=== PATIENT | male | born 1975 | race Caucasian/White ===

== ENCOUNTER 2023-07-03 08:17 | Outpatient (AMB) | payer OTHER, SELFPAY ==
--- NOTE | 2023-07-03 08:32 | MHC.PC.OV ---
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 Previous PCP 1.5 years ago in [place]. Medical history significant for morbid obesity, depression, hypertension. Patient reports that he was on sertraline in the past for depression although he stop taking it due to sexual side effects, patient would like to try bupropion, currently he self medicate with food. Patient denies SI. Patient also has therapist 4 times per month. Patient also reports that in the past he was on losartan for blood pressure. Blood pressure high in the office today, will restart blood pressure medication. Patient denies headache, shortness of breath, or chest pain. Patient unemployed and he lives with his . [facility], [facility] Medical History Migraines Surgical History No pertinent past surgical history Family History Mother COPD (chronic obstructive pulmonary disease) Father No problems noted. Social History Housing: Apartment Patient Tobacco Use Status: Never used Tobacco service: No Current occupational status: unemployed Cognitive needs: No Hearing needs: No Vision needs: No Questionnaire PHQ-9 Over the last 2 weeks, how often have you been bothered by any of the following problems? 1. Little interest or pleasure in doing things: more than half the days 2. Feeling down, depressed, or hopeless: several days 3. Trouble falling or staying asleep, or sleeping too much: not at all 4. Feeling tired or having little energy: not at all 5. Poor appetite or overeating: several days 6. Feeling bad about yourself - or that you are a failure or have let yourself or your family down: not at all 7. Trouble concentrating on things, such as reading the newspaper or watching television: not at all 8. Moving or speaking so slowly that other people could have noticed. Or the opposite - being so fidgety or restless that you have been moving around a lot more than usual: not at all 9. Thoughts that you would be better off or of hurting yourself in some way: not at all Total score: 4 Depression Screening Interpretation: Positive Depression Screening Follow-up: In treatment and New Medication prescribed Depression Screening Done: Yes 95288 - PHQ-9 Billing: Yes Source: Developed by Drs. Rasheed Puckett, Sharla Root, Thierno Shepard and colleagues, with an educational kelsy from [employer]. Thrive Questionnaire Date Thrive assessed: 07/03/23 I am a: Patient What is your living situation today?: I have a steady place to live Within the past 12 months, did the food you bought not last and you didn't have the money to get more?: Never true Within the past 12 months, did you worry whether your food would run out before you got money to buy more?: Never true Do you have trouble paying for medicines?: No Do you have trouble getting transportation to medical appointments?: No Do you have trouble paying your heating and electricity bill?: No Do you have trouble taking care of your child, family member or friend?: No Do you have trouble with day-to-day activities such as bathing, preparing meals, shopping, managing finances, etc.?: No Are you currently unemployed and looking for a job?: No Are you interested in more education?: No Currently or been in a relationship where the following occur: no concerns reported AUDIT C Alcohol Use Questionnaire (AUDIT-C) 1. How often do you have a drink containing alcohol?: Never 3. How often do you have six or more drinks on one occasion?: Never Total Score: 0 Score Reviewed/Action Taken: No SANTOS-7 AMB Questionnaire SANTOS-7 Date SANTOS - 7 assessed: 07/03/23 Feeling nervous, anxious, or on edge: 3 = Nearly every day Not being able to stop or control worryin = Not at all Worrying too much about different things: 0 = Not at all Trouble relaxin = Several days Being so restless that it is hard to sit still: 0 = Not at all Becoming easily annoyed or irritable: 0 = Not at all Feeling afraid as if something awful might happen: 1 = Several days Total SANTOS-7 score (0-4 normal; 5-9 mild; 10-14 moderate; 15-21 severe): 5 Source: Developed by Drs. Rasheed Puckett, Sharla Root, Thierno Shepard and colleagues, with an educational kelsy from [employer]. SANTOS-7 Assessment Billing SANTOS-7 Assessment Tool: SANTOS-7 Assessment 78239 Review of Systems Const Denies body aches, Denies chills, Denies fever(s) and Denies headache(s) Eyes Denies change in vision ENT Denies dizziness, Denies otalgia, Denies headache(s), Denies nasal discharge, Denies sinus pain and Denies sore throat Card Denies chest pain, Denies edema, Denies lightheadedness and Denies dyspnea Resp Denies cough, Denies dyspnea and Denies wheezing GI Denies abdominal pain, Denies constipation, Denies diarrhea, Denies nausea and Denies vomiting Denies dysuria Musc Denies myalgias Skin/Breast Denies rash Neuro Denies dizziness and Denies headache(s) Aller/Immun Denies wheezing Physical exam (Primary Care) Vital Signs: Last Vital Signs Pulse 83 07/03/23 08:33 BP 164/100 H 07/03/23 08:58 Pulse Ox 97 07/03/23 08:33 Oxygen Delivery Method Room Air 07/03/23 08:33 BMI result Body Mass Index 51.8 Tobacco/Smoking Status: Tobacco use Status Tobacco use date assessed 07/03/23 07/03/23 08:40 Patient Tobacco Use Status Never used Tobacco 07/03/23 08:40 PHQ-9: PHQ-9 Score PHQ-9: Total score 4 07/03/23 08:50 Depression Screening Interpretation: Positive Depression Screening Follow-up: In treatment and New Medication prescribed Thrive Assessment: Date of Thrive Assessment Date Thrive assessed 07/03/23 07/03/23 08:40 Currently or been in a relationship where the following occur: no concerns reported Const General: cooperative and no acute distress Orientation/consciousness: patient oriented x3 HENMT Head: Yes normocephalic and Yes atraumatic Ears: TM's normal bilaterally Face and sinus: Yes sinuses nontender Mouth: oropharynx normal and moist mucous membranes Throat: Yes posterior oropharynx normal Eyes General: appearance normal, both eyes and all related structures Pupils: Equal, round and reactive pupils present EOM: EOMs intact bilaterally Neck Neck: Yes normal visual inspection, Yes full ROM and Yes no lymphadenopathy Thyroid: Thyroid normal Resp Effort & Inspection: normal respiratory effort and able to speak in complete sentences Auscultation: clear to auscultation bilaterally, no crackles, no rales, no rhonchi and no wheezes Cardio Rate: regular rate Rhythm: regular rhythm Heart sounds: S1 normal heart sound present, S2 normal heart sound present and no murmurs GI Palpation (GI): Soft to palpation, not firm, nontender, no guarding, not rigid and no hepatosplenomegaly Auscultation: normal bowel sounds General: No CVA tenderness Back/Spine/Pelvis Back: No CVA tenderness Skin General skin exam: no rashes or lesions noted Neuro General: patient oriented x3 Cranial nerves: Yes Equal, round and reactive pupils present Gait exam (Neuro): Normal gait present Extrem General: Yes full ROM and No edema Assessment and Plan Assessment & Plan (1) Hypertension: Code(s): I10 - Essential (primary) hypertension Plan: Goal BP equal or less than 140/90 Blood pressure high in the office, denies acute symptoms Patient is to monitor blood pressures at home Start losartan 25 mg daily Low-sodium diet and weight loss Follow-up with nurse in 2 weeks for BP recheck Signs and symptoms reviewed when to notify provider or go to the emergency department (2) Depression: Code(s): F32.A - Depression, unspecified Qualifiers: Depression Type: other depression Qualified Code(s): F32.89 - Other specified depressive episodes Plan: Start bupropion 150 mg daily-possible adverse reactions reviewed with the patient and when to notify provider Continue to follow-up with therapist (3) Encounter to establish care: Code(s): Z76.89 - Persons encountering health services in other specified circumstances Plan: Blood work has been ordered (4) Morbid obesity with BMI of 50.0-59.9, adult: Code(s): E66.01 - Morbid (severe) obesity due to excess calories; Z68.43 - Body mass index [BMI] 50.0-59.9, adult Plan: Encouraged healthy food choices and exercise as tolerated Patient also was notified about weight management program - currently not interested He reports that in the past he was able to lose weight on his own Plan Follow-up in 6 works for PE and labs Orders: Orders Vitamin D 25-OH Total Today I10 - Essential (primary) hypertension Vitamin B12 and Folate Today I10 - Essential (primary) hypertension TSH reflex Free T4 Today I10 - Essential (primary) hypertension Lipid Panel Today I10 - Essential (primary) hypertension Comprehensive [place]. Panel Fast Today I10 - Essential (primary) hypertension Complete Blood Count Auto Diff Today I10 - Essential (primary) hypertension Medications: New bupropion HCl 150 mg PO DAILY 30 tabs 1RF F32.A - Depression, unspecified losartan 25 mg PO DAILY 30 tabs 2RF I10 - Essential (primary) hypertension Coding Level of Care Code New Pt Level 4 (61764) Diagnoses Hypertension I10 Other depression F32.89 Depression Type: other depression Encounter to establish care Z76.89 Morbid obesity with BMI of 50.0-59.9, adult E66.01; Z68.43 Additional Codes SANTOS-7 Assessment Billing - SANTOS-7 Assessment Tool: SANTOS-7 Assessment 16622 ([id number])
[2023-07-03 08:33] VITALS: BP 160/90; PULSE 83; O2SAT 97; BMI 51.8
[2023-07-03 08:58] VITALS: BP 164/100
== END 2023-07-03 09:10 | disposition home or self-care (01) ==
PROVIDERS: PCP Nurse Practitioner Family; Visit Provider Nurse Practitioner Family
DX: I10 Essential (primary) hypertension (principal); F32.89 Other specified depressive episodes; E66.01 Morbid (severe) obesity due to excess calories; Z68.43 Body mass index [BMI] 50.0-59.9, adult; Z76.89 Persons encountering health services in other specified circumstances
CPT/HCPCS: 96127; 99204

== ENCOUNTER 2023-08-09 11:20 | Outpatient (REF) | payer OTHER, SELFPAY ==
[2023-08-09 11:31] LABS: MANUAL DIFF FLAG NO
[2023-08-09 11:37] LABS: Basophils Absolute Auto 0.1 X10*3/uL (0.0-0.2); Basophils Percent Auto 0.7 % (0-2); Eosinophils Absolute Auto 0.3 X10*3/uL (0.0-0.4); Eosinophils Percent Auto 3.8 % (0-4); Hematocrit 43.2 % (42.0-52.0); Hemoglobin 14.3 g/dl (14.0-18.0); Imm Gran Abs Auto 0.02 X10*3/uL (0.00-0.03); Imm Gran Pct Auto 0.3 % (0.0-0.4); Lymphocytes Absolute Auto 1.7 X10*3/uL (1.2-4.9); Lymphocytes Percent Auto 23.5 % (20-40); Mean Corpuscular HGB Conc 33.1 g/dl (31.0-36.0); Mean Corpuscular Volume 84.7 fL (80.0-98.0); Mean Platelet Volume 9.7 fL (9.4-12.4); Monocytes Absolute Auto 0.5 X10*3/uL (0.1-1.2); Monocytes Percent Auto 7.1 % (2-11); Neutrophils Absolute Auto 4.8 x10*3/uL (2.0-8.3); Neutrophils Percent Auto 64.6 % (45-73); Platelet Count 210 X10*3/uL (160-400); Red Cell Distribution Width 13.2 % (11.0-16.0); White Blood Count 7.4 X10*3/uL (4.8-10.8)
[2023-08-09 12:11] LABS: Alanine Aminotransferase 21 U/L (0-40); Albumin Level 4.2 g/dL (3.5-5.0); Alkaline Phosphatase 76 U/L (39-117); Anion Gap 11 (12-20); Aspartate Amino Transferase 20 U/L (5-37); Bilirubin Total 0.7 mg/dL (0.0-1.0); Blood Urea Nitrogen 10 mg/dL (9-16); Calcium 9.4 mg/dL (8.4-10.2); Carbon Dioxide 29 mmol/L (22-29); Chloride 111 mmol/L (96-108); Cholesterol 192 mg/dL (<200); Estimated Glomerular Filt Rate > 60; Glucose Fasting 101 mg/dL (60-99); HDL Cholesterol 36 mg/dL (>40); LDL Cholesterol Calculated 129 mg/dL (<100); Potassium 4.9 mmol/L (3.3-5.1); Sodium 146 mmol/L (135-145); Total Protein 7.3 g/dL (6.5-8.0); Triglycerides 135 mg/dL (<150)
[2023-08-09 12:26] LABS: Vitamin D 25-OH Total 19.1 ng/mL (>30)
[2023-08-09 12:36] LABS: Folate 11.9 ng/mL (> or = 4.0); Vitamin B12 267 pg/mL (200-900)
== END 2023-08-09 11:21 | disposition home or self-care (01) ==
LOC: HO.LAB 11:20
PROVIDERS: PCP Nurse Practitioner Family; Visit Provider Nurse Practitioner Family
DX: I10 Essential (primary) hypertension (principal)
CPT/HCPCS: 36415; 80053; 80061; 82306; 82607; 82746; 84443; 85025

== ENCOUNTER 2023-08-14 14:16 | Outpatient (AMB) | payer OTHER, SELFPAY ==
[2023-08-14 14:17] VITALS: BP 158/100; PULSE 77; O2SAT 100; BMI 51.7
--- NOTE | 2023-08-14 14:17 | MHC.PC.OV ---
Vital Signs 08/14/23 14:17 08/14/23 14:43 Height 5 ft 6.5 in Weight 325 lb BMI 51.7 BP 158/100 H 164/100 H Blood Pressure Location Lt brachial Lt brachial Position Sitting Sitting Pulse 77 Pulse Source Pulse Oximeter Pulse Oximetry (%) 100 Oxygen Delivery Method Room Air Intake Visit Reasons: Annual Exam Intake Note: Patient is here today for a physical. 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 Medical history significant for depression, hypertension, morbid obesity. Today we discussed patient's need for colon cancer screening. He reports tetanus vaccine in the last 10 years. Eye exam up-to-date, he will call for dental exam. No shortness of breath or chest pain. Recent blood work results reviewed with the patient. Patient reports that he is waiting for a new blood pressure machine. FORMERLY [facility], LATER [facility] Medical History Foot pain, left Encounter to establish care Migraines Surgical History No pertinent past surgical history Family History Mother COPD (chronic obstructive pulmonary disease) Father No problems noted. Social History Housing: Apartment Patient Tobacco Use Status: Never used Tobacco service: No Current occupational status: unemployed Cognitive needs: No Hearing needs: No Vision needs: No Questionnaire PHQ-9 Over the last 2 weeks, how often have you been bothered by any of the following problems? 1. Little interest or pleasure in doing things: more than half the days 2. Feeling down, depressed, or hopeless: several days 3. Trouble falling or staying asleep, or sleeping too much: not at all 4. Feeling tired or having little energy: not at all 5. Poor appetite or overeating: several days 6. Feeling bad about yourself - or that you are a failure or have let yourself or your family down: not at all 7. Trouble concentrating on things, such as reading the newspaper or watching television: not at all 8. Moving or speaking so slowly that other people could have noticed. Or the opposite - being so fidgety or restless that you have been moving around a lot more than usual: not at all 9. Thoughts that you would be better off or of hurting yourself in some way: not at all Total score: 4 Depression Screening Interpretation: Positive Depression Screening Follow-up: In treatment and New Medication prescribed Depression Screening Done: Yes 86723 - PHQ-9 Billing: Yes Source: Developed by Drs. Rasheed Puckett, Sharla Root, Thierno Shepard and colleagues, with an educational kelsy from [employer]. Thrive Questionnaire Date Thrive assessed: 07/03/23 AUDIT C Alcohol Use Questionnaire (AUDIT-C) 1. How often do you have a drink containing alcohol?: Never 3. How often do you have six or more drinks on one occasion?: Never Total Score: 0 Score Reviewed/Action Taken: No SANTOS-7 AMB Questionnaire SANTOS-7 Date SANTOS - 7 assessed: 07/03/23 Feeling nervous, anxious, or on edge: 0 = Not at all Not being able to stop or control worryin = Not at all Worrying too much about different things: 0 = Not at all Trouble relaxin = Not at all Being so restless that it is hard to sit still: 0 = Not at all Becoming easily annoyed or irritable: 0 = Not at all Feeling afraid as if something awful might happen: 0 = Not at all Total SANTOS-7 score (0-4 normal; 5-9 mild; 10-14 moderate; 15-21 severe): 0 Source: Developed by Drs. Rasheed Puckett, Sharla Root, Thierno Shepard and colleagues, with an educational kelsy from [employer]. SANTOS-7 Assessment Billing SANTOS-7 Assessment Tool: SANTOS-7 Assessment 91782 Review of Systems Const Denies body aches, Denies chills, Denies fever(s) and Denies headache(s) Eyes Denies change in vision ENT Denies dizziness, Denies otalgia, Denies headache(s), Denies nasal discharge, Denies sinus pain and Denies sore throat Card Denies chest pain, Denies edema, Denies lightheadedness and Denies dyspnea Resp Denies cough, Denies dyspnea and Denies wheezing GI Denies abdominal pain, Denies constipation, Denies diarrhea, Denies nausea and Denies vomiting Denies dysuria Musc Denies myalgias Skin/Breast Denies rash Neuro Denies dizziness and Denies headache(s) Aller/Immun Denies wheezing Physical exam (Primary Care) Vital Signs: Last Vital Signs Pulse 77 08/14/23 14:17 BP 158/100 H 08/14/23 14:17 Pulse Ox 100 08/14/23 14:17 Oxygen Delivery Method Room Air 08/14/23 14:17 BMI result Body Mass Index 51.7 Tobacco/Smoking Status: Tobacco use Status Tobacco use date assessed 08/14/23 08/14/23 14:18 Patient Tobacco Use Status Never used Tobacco 08/14/23 14:18 PHQ-9: PHQ-9 Score PHQ-9: Total score 4 08/14/23 14:23 Depression Screening Interpretation: Positive Depression Screening Follow-up: In treatment and New Medication prescribed Thrive Assessment: Date of Thrive Assessment Date Thrive assessed 07/03/23 08/14/23 14:18 Const General: cooperative and no acute distress Orientation/consciousness: patient oriented x3 HENMT Head: Yes normocephalic and Yes atraumatic Ears: TM's normal bilaterally Face and sinus: Yes sinuses nontender Mouth: oropharynx normal and moist mucous membranes Throat: Yes posterior oropharynx normal Eyes General: appearance normal, both eyes and all related structures Pupils: Equal, round and reactive pupils present EOM: EOMs intact bilaterally Neck Neck: Yes normal visual inspection, Yes full ROM and Yes no lymphadenopathy Thyroid: Thyroid normal Resp Effort & Inspection: normal respiratory effort and able to speak in complete sentences Auscultation: clear to auscultation bilaterally, no crackles, no rales, no rhonchi and no wheezes Cardio Rate: regular rate Rhythm: regular rhythm Heart sounds: S1 normal heart sound present, S2 normal heart sound present and no murmurs GI Palpation (GI): Soft to palpation, not firm, nontender, no guarding, not rigid and no hepatosplenomegaly Auscultation: normal bowel sounds General: No CVA tenderness Back/Spine/Pelvis Back: No CVA tenderness Skin General skin exam: no rashes or lesions noted Neuro General: patient oriented x3 Cranial nerves: Yes Equal, round and reactive pupils present Gait exam (Neuro): Normal gait present Extrem General: Yes full ROM and No edema Assessment and Plan Assessment & Plan (1) Morbid obesity with BMI of 50.0-59.9, adult: Code(s): E66.01 - Morbid (severe) obesity due to excess calories; Z68.43 - Body mass index [BMI] 50.0-59.9, adult Plan: Encouraged healthy food choices and exercise as tolerated Patient also was notified about weight management program - currently not interested He reports that in the past he was able to lose weight on his own (2) Low vitamin D level: Code(s): R79.89 - Other specified abnormal findings of blood chemistry Plan: Vitamin-D level 19.1 07/2023 Start vitamin-D supplementation Recheck in 3 months blood work (3) Screening for colon cancer: Code(s): Z12.11 - Encounter for screening for malignant neoplasm of colon (4) Hypertension: Code(s): I10 - Essential (primary) hypertension Plan: Goal BP equal or less than 140/90 Blood pressure is elevated today, patient reports that he is waiting for a new blood pressure machine, unable to check blood pressures at home currently Stop losartan, start amlodipine 5 mg daily-educated about possible adverse reactions and when to notify provider Low-sodium diet and weight loss Follow-up with nurse in 2 weeks for BP recheck (5) Depression: Code(s): F32.A - Depression, unspecified Qualifiers: Depression Type: other depression Qualified Code(s): F32.89 - Other specified depressive episodes Plan: Stable with bupropion Continue to follow-up with therapist (6) Adult general medical exam: Code(s): Z00.00 - Encounter for general adult medical examination without abnormal findings Plan Follow-up in 3 months Orders: Orders Vitamin D 25-OH Total 3 Months R79.89 - Other specified abnormal findings of blood chemistry Referrals Gastroenterology Referral Z12.11 - Encounter for screening for malignant neoplasm of colon Medications: New cholecalciferol (vitamin D3) 50 mcg PO DAILY 90 tabs 0RF R79.89 - Other specified abnormal findings of blood chemistry amlodipine 5 mg PO DAILY 30 tabs 2RF I10 - Essential (primary) hypertension Refilled bupropion HCl 150 mg PO DAILY 90 tabs 1RF F32.A - Depression, unspecified Discontinued losartan Discontinued Reason: Doctor's Order 50 mg PO DAILY 30 tabs 2RF I10 - Essential (primary) hypertension Coding Level of Care Code Est Pt Prev Care 40-64y(61895) Diagnoses Morbid obesity with BMI of 50.0-59.9, adult E66.01; Z68.43 Low vitamin D level R79.89 Screening for colon cancer Z12.11 Hypertension I10 Other depression F32.89 Depression Type: other depression Adult general medical exam Z00.00 Additional Codes SANTOS-7 Assessment Billing - SANTOS-7 Assessment Tool: SANTOS-7 Assessment 84016 ([id number])
[2023-08-14 14:43] VITALS: BP 164/100
== END 2023-08-14 14:58 | disposition home or self-care (01) ==
PROVIDERS: PCP Nurse Practitioner Family; Visit Provider Nurse Practitioner Family
DX: Z00.00 Encounter for general adult medical examination without abnormal findings (principal); E66.01 Morbid (severe) obesity due to excess calories; Z68.43 Body mass index [BMI] 50.0-59.9, adult; R79.89 Other specified abnormal findings of blood chemistry; Z12.11 Encounter for screening for malignant neoplasm of colon; I10 Essential (primary) hypertension; F32.89 Other specified depressive episodes
CPT/HCPCS: 96127; 99396

== ENCOUNTER 2023-11-06 10:42 | Outpatient (REF) | payer OTHER, SELFPAY ==
[2023-11-06 12:50] LABS: Vitamin D 25-OH Total 29.5 ng/mL (>30)
== END 2023-11-06 10:43 | disposition home or self-care (01) ==
LOC: HO.LAB 10:42
PROVIDERS: PCP Nurse Practitioner Family; Visit Provider Nurse Practitioner Family
DX: E55.9 Vitamin D deficiency, unspecified (principal)
CPT/HCPCS: 36415; 82306

== ENCOUNTER 2024-04-06 10:45 | Outpatient (AMB) | payer OTHER, SELFPAY ==
--- NOTE | 2024-04-06 10:54 | A.OFFPC_ITS ---
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 Care from [facility] ( medications) Allergies No Known Allergies Allergy (Verified 08/14/23 14:36) Medication List - Last Reconciled 04/06/24 by Samantha Montiel, TRAY SERVER- amlodipine 5 mg PO DAILY bupropion HCl SR 150 mg PO DAILY cholecalciferol (vitamin D3) 50 mcg PO DAILY Tobacco use date assessed: 04/06/24 Dental Screening Dental Screen Date: 04/06/24 Did you have a dental visit in the last 12 months?: No Did you have a dental problem in the last 6 months where you did not have access to dental care?: No Was dental information given to patient?: Patient declined (Patient will find one when he moves) HPI HPI Comments History of Present Illness Details 48-year-old male with vitamin-D deficien cy, obesity, hypertension, major depressive disorder, migraines, IFG, PTSD Health Maintenance: ? Colon ? PSA ? Tdap Specialists: GI counselor Here today to establish care, last physical exam 08/14/2023 For his depression he was previously managed on sertraline. Admits to binge eating disorder at last PCP visit, he was started on Bupropion; cont to take. Feels MDD is controlled, SANTOS is not; in the last month having a lot of anxiety, panic attacks, PTSD from childhood issues, Wellbutrin currently. on SR, taking QD. Was worsening anxiety when taking w caffiene, now taking at HS but not feeling any better. Was on vitamin-D supplementation for vitamin-D deficiency; cont to take. improved vit d 10/2023 HTN uncontrolled. Was on losartan in the past,this was discontinued and he was started on amlodipine which he cont to take, reports he some times monitors BP at home SBP around 150, admits white coat; no swelling with norvasc, denies chest pain Exam: Awake alert, pleasant RRR LS CTAB trace edema BLE, hairless, vascular skin changes Tearful and anxious yet pleasant and cooperative Plan increase wellbutrin sr from 150mg QD to BID start clonidine 0.1 mg at HS to help anxiety and HTN RTO 2 weeks to NN BP recheck then 4-6 weeks 30 min w/ me to fu on clonidine start and wellbutrin increase, sooner prn This note is constructed using voice recognition software. While every effort has been made to ensure accuracy in speech language assistant, still errors may have been included Sometimes, these errors may affect the content or meaning of the given sentence . Total time spent caring for the patient today was 40 minutes. This includes time spent before the visit reviewing the chart, time spent during the visit, and time spent after the visit on documentation [facility] Medical History Foot pain, left Encounter to establish care Migraines Surgical History No pertinent past surgical history Family History Mother COPD (chronic obstructive pulmonary disease) Father No problems noted. Social History Housing: Apartment Patient Tobacco Use Status: Never used Tobacco e-Cigarette/Vaping Use: Never Used Second Hand Smoke Exposure: No service: No Current occupational status: unemployed Cognitive needs: No Hearing needs: No Vision needs: No Questionnaire PHQ-9 Over the last 2 weeks, how often have you been bothered by any of the following problems? 1. Little interest or pleasure in doing things: several days 2. Feeling down, depressed, or hopeless: several days 3. Trouble falling or staying asleep, or sleeping too much: not at all 4. Feeling tired or having little energy: not at all 5. Poor appetite or overeating: not at all 6. Feeling bad about yourself - or that you are a failure or have let yourself or your family down: several days 7. Trouble concentrating on things, such as reading the newspaper or watching television: not at all 8. Moving or speaking so slowly that other people could have noticed. Or the opposite - being so fidgety or restless that you have been moving around a lot more than usual: not at all 9. Thoughts that you would be better off or of hurting yourself in some way: not at all Total score: 3 Depression Screening Interpretation: Positive Depression Screening Done: Yes 59879 - PHQ-9 Billing: Yes Source: Developed by Drs. Rasheed Puckett, Sharla Root, Thierno Shepard and colleagues, with an educational kelsy from [employer]. Thrive Questionnaire Date Thrive assessed: 04/06/24 I am a: Patient What is your living situation today?: I have a steady place to live Within the past 12 months, did the food you bought not last and you didn't have the money to get more?: Never true Within the past 12 months, did you worry whether your food would run out before you got money to buy more?: Never true Do you have trouble paying for medicines?: No Do you have trouble getting transportation to medical appointments?: No Do you have trouble paying your heating and electricity bill?: No Do you have trouble taking care of your child, family member or friend?: No Do you have trouble with day-to-day activities such as bathing, preparing meals, shopping, managing finances, etc.?: No Are you currently unemployed and looking for a job?: No Are you interested in more education?: No Please select the resources that you would like help with: None Currently or been in a relationship where the following occur: No concerns reported THRIVE Score: 0 AUDIT C Alcohol Use Questionnaire (AUDIT-C) 1. How often do you have a drink containing alcohol?: Monthly or less (once a year) 2. How many drinks containing alcohol do you have on a typical day when you are drinking?: 1 or 2 3. How often do you have six or more drinks on one occasion?: Never Total Score: 1 SANTOS-7 AMB Questionnaire SANOTS-7 Date SANTOS - 7 assessed: 07/03/23 Feeling nervous, anxious, or on edge: 3 = Nearly every day Not being able to stop or control worryin = Several days Worrying too much about different things: 1 = Several days Trouble relaxin = Several days Being so restless that it is hard to sit still: 1 = Several days Becoming easily annoyed or irritable: 0 = Not at all Feeling afraid as if something awful might happen: 0 = Not at all Total SANTOS-7 score (0-4 normal; 5-9 mild; 10-14 moderate; 15-21 severe): 7 Source: Developed by Drs. Rasheed Puckett, Sharla Root, Thierno Shepard and colleagues, with an educational kelsy from [employer]. SANTOS-7 Assessment Billing SANTOS-7 Assessment Tool: SANTOS-7 Assessment 14005 Physical exam (Primary Care) Vital Signs: Last Vital Signs Temp 98.1 F 04/06/24 10:57 Pulse 87 04/06/24 10:57 Resp 14 04/06/24 10:57 BP 168/117 H 04/06/24 11:02 Pulse Ox 95 04/06/24 10:57 Oxygen Delivery Method Room Air 04/06/24 10:57 BMI result Body Mass Index 51.5 BMI Assessment/Plan discussion: High BMI High, discussed plan: lifestyle Tobacco/Smoking Status: Tobacco use Status Tobacco use date assessed 04/06/24 04/06/24 11:04 Patient Tobacco Use Status Never used Tobacco 04/06/24 11:04 e-Cigarette/Vaping Use Never Used 04/06/24 11:04 PHQ-9: PHQ-9 Score PHQ-9: Total score 3 04/06/24 11:51 Depression Screening Interpretation: Positive Thrive Assessment: Date of Thrive Assessment Date Thrive assessed 04/06/24 04/06/24 11:51 Currently or been in a relationship where the following occur: No concerns reported Assessment and Plan Assessment & Plan (1) Hypertension: Code(s): I10 - Essential (primary) hypertension Qualifiers: Hypertension type: primary hypertension Qualified Code(s): I10 - Essential (primary) hypertension (2) Morbid obesity with BMI of 50.0-59.9, adult: Code(s): E66.01 - Morbid (severe) obesity due to excess calories; Z68.43 - Body mass index [BMI] 50.0-59.9, adult (3) SANTOS (generalized anxiety disorder): Code(s): F41.1 - Generalized anxiety disorder (4) MDD (major depressive disorder), recurrent episode: Code(s): F33.9 - Major depressive disorder, recurrent, unspecified Qualifiers: Major depression episode severity: mild Qualified Code(s): F33.0 - Major depressive disorder, recurrent, mild (5) PTSD (post-traumatic stress disorder): Code(s): F43.10 - Post-traumatic stress disorder, unspecified Medications: New clonidine HCl 0.1 mg PO BEDTIME 30 tabs 1RF Changed From bupropion HCl SR 150 mg PO DAILY 90 tabs 0RF F32.A - Depression, unspecified To bupropion HCl SR 150 mg PO BID 60 tabs 1RF F32.A - Depression, unspecified Patient Instructions: Walk-In Care (Urgent Care): We Make it Easy Walk-in for urgent medical issues such as: ? Seasonal Allergies ? Insect Bites ? Cough ? Diarrhea ? Acute Asthma Attacks ? Back, Knee or Joint Pain ? Ear Infection ? Fever without a Rash ? Headaches ? Nausea ? [place], Rash or Skin Irritation ? Sore Throat ? Sports Physicals ? Vomiting Most insurances are accepted. Patients do not need to be part of the [facility] to seek care at the walk-in clinic. Locations [facility] [place] [address] ? [phone] [facility] Walk-In Care in [place] provides services to ages 18 and over. Open Saturday-Saturday: 8 a.m. to 5 p.m. and Saturday: 9 a.m. to 3 p.m.* *Hours may vary due to staffing availability. To confirm Walk-In Care hours in [place], please call [phone]. [address] [place] [address] ? [phone] [facility] Walk-In Care in [place] provides services to ages 12 and over. Open Saturday-Saturday: 8 a.m. to 5 p.m. Hours may vary due to staffing availability. To confirm Walk-In Care hours in [place], please call [phone]. LABORATORY SERVICES: [facility] Lab ? Primary Location [address] [place] [address] Saturday through Saturday 6:00 AM ? 5:00 PM Saturday 7:00 AM ? 11:00 AM* [phone] The [facility] Lab is centrally located near the front entrance of the [facility] for easy outpatient access. Convenient parking is provided for outpatients. *Hours may vary due to staffing availability. To confirm Laboratory hours for any location, please call [phone]. Offsite Location For your convenience, we offer offsite laboratory draw stations at the following locations: [address] [facility] [place] ? [facility] [address] [facility], [place] Saturday through Saturday 7:30 AM ? 1:00 PM* [phone] *Hours may vary due to staffing availability. To confirm Laboratory hours for any location, please call [phone]. [place] ? [facility] [address] [facility] Saturday through Saturday 6:00 AM ? 3:30 PM* Saturday 6:30 AM ? 3 PM* [phone] *Hours may vary due to staffing availability. To confirm Laboratory hours for any location, please call [phone]. [address] [facility] Saturday through Saturday 7:30 AM ? 4:00 PM* [phone] *Hours may vary due to staffing availability. To confirm Laboratory hours for any location, please call [phone] [place] [address] Saturday through 9:00 AM ? 4:00 PM* *Hours may vary due to staffing availability. To confirm Laboratory hours for any location, please call [phone]. Appointments are not necessary. Walk-ins are welcome. Like all the departments throughout the [facility], our Lab undergoes frequent reviews to ensure the quality and accuracy of test results, and our staff takes special pride in its status as a nationally accredited facility. Patient Portal: ONE PATIENT. ONE RECORD. BETTER CARE. [facility] has a fully integrated, cutting- edge mobile electronic health information system that has revolutionized the way we care for our patients and manage our organization. This system improves communication and coordination enabling us to provide safe, higher-quality care, and an overall positive experience for staff and patients. Our first priority, as always, is to deliver the highest quality care possible. The system is running in the background supporting that priority. This portal is for all [facility] services and practices. If you are experiencing any technical difficulties with enrolling or logging into the Patient Portal please complete the [facility] Patient Portal Technical Support Form. [facility] now offers a new secure on-line interactive tool for patients to review their health information ? Patient Portal. This interactive web portal will enable patients and their families to take an active role in their care by providing easy, secure access to their health information via the internet. The Patient Portal provides patients with instant access to their health information, including laboratory results, medications, allergies, demographic information, visit history, and more. In addition to managing their own care, parents and health care proxies with authorized consent will appreciate the ability to access the records of those individuals for whom they provide care. Please note: if you wish to gain access (Proxy) to another patient?s portal, you will be required to come to the Medical Records Department in person at [facility]. Both the patient giving proxy access and the proxy will need to provide photo identification and complete the appropriate authorization. The Patient Portal also allows track their appointments online. The [facility] Patient Portal also saves patients time by allowing them to submit updates to their demographic and contact information prior to their visits. Portal email notifications will also alert patients to any new activity on their portal, such as test results and new appointments. In order to initially enroll in the [facility] Patient Portal, you will need to enter some required information including the following: ? your [facility] Medical Record number ? your personal home email address ? name ? date of Please note: In order to enroll in the [facility] Patient Portal, we need to have your email address on file in your electronic medical record. The email address needs to be specific for one person (yourself) in order for your Portal enrollment to be successful. You can update your email address in person with our Registration staff when you are registering for a hospital visit. Otherwise, you will need to come to the Health Information Management (Medical Records) Department at [facility]. We are open from Saturday ? Saturday from 7:30 a.m. ? 4:30 p.m. You will be required to present a photo id. Once you have successfully enrolled in the Patient Portal, you will receive a one-time user id and password for the Portal, sent to your email address. This will allow you to log into the Patient Portal within 99 hrs and reset your own logon id and password, and define personal security questions. Once your permanent login and password have been set, you can log into the [facility] Patient Portal at any time via the blue button above or from the Portal Logon button on any page of the [facility] website. [facility] encourage all of our patients to enroll in Patient Portal as it presents a valuable opportunity for patients and their families to actively participate in their care and stay healthy Welcome to [facility]. We look forward to working with you. Coding Level of Care Code Est Pt Level 5 (97802) Diagnoses Primary hypertension I10 Hypertension type: primary hypertension Morbid obesity with BMI of 50.0-59.9, adult E66.01; Z68.43 SANTOS (generalized anxiety disorder) F41.1 Mild episode of recurrent major depressive disorder F33.0 Major depression episode severity: mild PTSD (post-traumatic stress disorder) F43.10 Additional Codes SANTOS-7 Assessment Billing - SANTOS-7 Assessment Tool: SANTOS-7 Assessment 47225 ([id number])
[2024-04-06 10:57] VITALS: BP 178/110; PULSE 87; RESP 14; TEMP 36.7; O2SAT 95; BMI 51.5
[2024-04-06 11:02] VITALS: BP 168/117
== END 2024-04-06 11:29 | disposition home or self-care (01) ==
PROVIDERS: PCP Nurse Practitioner Family; Visit Provider Nurse Practitioner Family
DX: I10 Essential (primary) hypertension (principal); E66.01 Morbid (severe) obesity due to excess calories; F33.0 Major depressive disorder, recurrent, mild; Z68.43 Body mass index [BMI] 50.0-59.9, adult; F41.1 Generalized anxiety disorder; F43.10 Post-traumatic stress disorder, unspecified
CPT/HCPCS: 96127; 99215

== ENCOUNTER 2024-04-20 08:54 | Outpatient (AMB) | payer OTHER, SELFPAY ==
[2024-04-20 09:06] VITALS: BP 156/114; PULSE 64; RESP 18; O2SAT 94; BMI 51.3
--- NOTE | 2024-04-20 09:06 | A.OFFPC_ITS ---
Vital Signs 04/20/24 09:06 04/20/24 09:26 04/20/24 09:38 Height 5 ft 6.5 in Weight 322 lb 8 oz BMI 51.3 BP 156/114 H 142/112 H 142/90 H Blood Pressure Location Rt brachial Rt brachial Rt brachial Position Sitting Sitting Sitting Respiration 18 Pulse 64 Pulse Source Pulse Oximeter Pulse Oximetry (%) 94 Oxygen Delivery Method Room Air Intake Visit Reasons: 2 weeks with NN for BP recheck Intake Note: Two week follow up htn [employer] Developer Required: No Allergies No Known Allergies Allergy (Verified 04/20/24 09:06) Medication List - Last Reconciled 04/20/24 by JOVANI Dey- amlodipine 5 mg PO DAILY bupropion HCl SR 150 mg PO BID cholecalciferol (vitamin D3) 50 mcg PO DAILY clonidine HCl 0.1 mg PO BEDTIME Tobacco use date assessed: 04/06/24 Dental Screening Dental Screen Date: 04/06/24 HPI HPI Comments History of Present Illness Details 48-year-old male with vitamin-D deficien cy, obesity, hypertension, major depressive disorder, migraines, IFG, PTSD Here today to fu on HTN He stopped taking his norvasc after the last visit. As he thought clonidine was instead of. BP at home has been better taking clonidine, sleeping well. anxiety is improved. He is also taking the Wellbutrin b.i.d. as prescribed at last office visit. Exam: Awake alert, pleasant RRR trace edema BLE, hairless, vascular skin changes Tearful and anxious yet pleasant and cooperative Plan Continue wellbutrin sr from 150mg QD to BID Continue clonidine 0.1 mg at HS to help anxiety and HTN Refill sent on the amlodipine 5 mg, encouraged to take this in addition to the clonidine. RTO 4 weeks 30 min w/ me to fu on hypertension and anxiety, sooner as needed This note is constructed using voice recognition software. While every effort has been made to ensure accuracy in instructional technology teacher, still errors may have been included Sometimes, these errors may affect the content or meaning of the given sentence . COUNT INCLUDES [facility] Medical History Foot pain, left Encounter to establish care Migraines Surgical History No pertinent past surgical history Family History Mother COPD (chronic obstructive pulmonary disease) Father No problems noted. Social History Housing: Apartment Patient Tobacco Use Status: Never used Tobacco e-Cigarette/Vaping Use: Never Used Second Hand Smoke Exposure: No service: No Current occupational status: unemployed Cognitive needs: No Hearing needs: No Vision needs: No Questionnaire Thrive Questionnaire Date Thrive assessed: 04/06/24 SANTOS-7 AMB Questionnaire SANTOS-7 Date SANTOS - 7 assessed: 07/03/23 Source: Developed by Drs. Rasheed Puckett, Sharla Root, Thierno Shepard and colleagues, with an educational kelsy from [employer]. Physical exam (Primary Care) Vital Signs: Last Vital Signs Pulse 64 04/20/24 09:06 Resp 18 04/20/24 09:06 BP 142/112 H 04/20/24 09:26 Pulse Ox 94 04/20/24 09:06 Oxygen Delivery Method Room Air 04/20/24 09:06 BMI result Body Mass Index 51.3 Tobacco/Smoking Status: Tobacco use Status Tobacco use date assessed 04/06/24 04/20/24 09:07 Patient Tobacco Use Status Never used Tobacco 04/20/24 09:07 e-Cigarette/Vaping Use Never Used 04/20/24 09:07 Thrive Assessment: Date of Thrive Assessment Date Thrive assessed 04/06/24 04/20/24 09:07 Assessment and Plan Assessment & Plan (1) Hypertension: Code(s): I10 - Essential (primary) hypertension Qualifiers: Hypertension type: primary hypertension Qualified Code(s): I10 - Essential (primary) hypertension (2) SANTOS (generalized anxiety disorder): Code(s): F41.1 - Generalized anxiety disorder Medications: New amlodipine 5 mg PO DAILY 30 tabs 1RF Coding Level of Care Code Est Pt Level 3 (43630) Diagnoses Primary hypertension I10 Hypertension type: primary hypertension SANTOS (generalized anxiety disorder) F41.1
[2024-04-20 09:26] VITALS: BP 142/112
[2024-04-20 09:38] VITALS: BP 142/90
== END 2024-04-20 11:06 | disposition home or self-care (01) ==
PROVIDERS: PCP Nurse Practitioner Family; Visit Provider Nurse Practitioner Family
DX: I10 Essential (primary) hypertension (principal); F41.1 Generalized anxiety disorder
CPT/HCPCS: 99213

== ENCOUNTER 2024-05-13 07:58 | Outpatient (AMB) | payer OTHER, SELFPAY ==
--- NOTE | 2024-05-13 08:02 | A.OFFPC_ITS ---
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 doing better in general A good deal of anxiety is gone. Has some times in the AM feeling anxious, within a few hours this resolves. Describes anxiety at times as hypervigalent Home BP log reviewed, SBP range 129-141 DB range 75-84 P range 55-75 Admits a little bit of edema in BLE however really unsure if this is new or new or not. Getting ready to move; dropped metal book end on R foot yesterday. Has some pain and bruising, causing a limp. Improved since yesterday. Exam: Awake alert, pleasant RRR trace edema BLE, hairless, vascular skin changes, ecchymosis top of R foot Mildly anxious, pleasant and cooperative Plan STOP Wellbutrin SR 150 mg b.i.d. Start Wellbutrin XL total dose of 450 mg daily, take in the morning Continue clonidine 0.1 mg at HS to help anxiety and HTN Blood pressure still not at goal, increase amlodipine from 5 mg daily to 7.5 mg daily Monitor blood pressure at home. Bring log with you to your next appointment which should be in about 4 weeks to follow up on anxiety and hypertension, sooner as needed [facility] Medical History Foot pain, left Encounter to establish care Migraines Surgical History No pertinent past surgical history Family History Mother COPD (chronic obstructive pulmonary disease) Father No problems noted. Social History Housing: Apartment Patient Tobacco Use Status: Never used Tobacco e-Cigarette/Vaping Use: Never Used Second Hand Smoke Exposure: No service: No Current occupational status: unemployed Cognitive needs: No Hearing needs: No Vision needs: No Questionnaire PHQ-9 Over the last 2 weeks, how often have you been bothered by any of the following problems? 1. Little interest or pleasure in doing things: not at all 2. Feeling down, depressed, or hopeless: several days 3. Trouble falling or staying asleep, or sleeping too much: not at all 4. Feeling tired or having little energy: not at all 5. Poor appetite or overeating: not at all 6. Feeling bad about yourself - or that you are a failure or have let yourself or your family down: several days 7. Trouble concentrating on things, such as reading the newspaper or watching television: not at all 8. Moving or speaking so slowly that other people could have noticed. Or the opposite - being so fidgety or restless that you have been moving around a lot more than usual: several days 9. Thoughts that you would be better off or of hurting yourself in some way: not at all Total score: 3 Depression Screening Interpretation: Positive Depression Screening Done: Yes 18087 - PHQ-9 Billing: Yes Source: Developed by Drs. Rasheed Puckett, Sharla Root, Thierno Shepard and colleagues, with an educational kelsy from [employer]. Thrive Questionnaire Date Thrive assessed: 04/06/24 SANTOS-7 AMB Questionnaire SANTOS-7 Date SANTOS - 7 assessed: 07/03/23 Feeling nervous, anxious, or on edge: 1 = Several days Not being able to stop or control worryin = Several days Worrying too much about different things: 1 = Several days Trouble relaxin = Several days Being so restless that it is hard to sit still: 0 = Not at all Becoming easily annoyed or irritable: 0 = Not at all Feeling afraid as if something awful might happen: 0 = Not at all Total SANTOS-7 score (0-4 normal; 5-9 mild; 10-14 moderate; 15-21 severe): 4 Source: Developed by Drs. Rasheed Puckett, Sharla Root, Thierno Shepard and colleagues, with an educational kelsy from [employer]. SANTOS-7 Assessment Billing SANTOS-7 Assessment Tool: SANTOS-7 Assessment 93956 Physical exam (Primary Care) Vital Signs: Last Vital Signs Pulse 73 05/13/24 08:04 Resp 18 05/13/24 08:04 BP 136/96 H 05/13/24 08:09 Pulse Ox 97 05/13/24 08:04 Oxygen Delivery Method Room Air 05/13/24 08:04 BMI result Body Mass Index 51.3 Tobacco/Smoking Status: Tobacco use Status Tobacco use date assessed 04/06/24 05/13/24 08:10 Patient Tobacco Use Status Never used Tobacco 05/13/24 08:10 e-Cigarette/Vaping Use Never Used 05/13/24 08:10 PHQ-9: PHQ-9 Score PHQ-9: Total score 3 05/13/24 08:10 Depression Screening Interpretation: Positive Thrive Assessment: Date of Thrive Assessment Date Thrive assessed 04/06/24 05/13/24 08:10 Assessment and Plan Assessment & Plan (1) SANTOS (generalized anxiety disorder): Code(s): F41.1 - Generalized anxiety disorder (2) Hypertension: Code(s): I10 - Essential (primary) hypertension Qualifiers: Hypertension type: primary hypertension Qualified Code(s): I10 - Essential (primary) hypertension Plan Total time spent caring for the patient today was 30 minutes. This includes time spent before the visit reviewing the chart, time spent during the visit, and time spent after the visit on documentation Medications: New bupropion HCl XL (Wellbutrin XL) take with 150mg tab daily 300 mg PO QAM 90 tabs 1RF bupropion HCl XL (Wellbutrin XL) take w 300mg tab daily 150 mg PO QAM 90 tabs 1RF Changed From amlodipine 5 mg PO DAILY 30 tabs 1RF To amlodipine 7.5 mg (1.5 x 5 mg) PO DAILY 135 tabs 1RF Coding Level of Care Code Est Pt Level 4 (89089) Diagnoses SANTOS (generalized anxiety disorder) F41.1 Primary hypertension I10 Hypertension type: primary hypertension Additional Codes SANTOS-7 Assessment Billing - SANTOS-7 Assessment Tool: SANTOS-7 Assessment 11274 ([id number])
[2024-05-13 08:04] VITALS: BP 142/98; PULSE 73; RESP 18; O2SAT 97; BMI 51.3
[2024-05-13 08:09] VITALS: BP 136/96
== END 2024-05-13 08:39 | disposition home or self-care (01) ==
PROVIDERS: PCP Nurse Practitioner Family; Visit Provider Nurse Practitioner Family
DX: F41.1 Generalized anxiety disorder (principal); I10 Essential (primary) hypertension
CPT/HCPCS: 96127; 99214